=== PATIENT | female | born 1990 | race Two or more races ===

== ENCOUNTER 2016-06-06 18:20 | Observation (INO) | payer BC ==
[~2016-06-06] VITALS: Ht 157.5 cm; Wt 64.9 kg
--- NOTE | ~2016-06-06 | HP ---
PATIENT'S NAME: [facility] AGE: 26 Y [address] ROOM: [address] [place], [place] [address] [place] [facility] [place] DATE: 06/06/2016 History & Physical DISCHARGE DATE: FAMILY PHYSICIAN: Airam Carlos MD ATTENDING PHYSICIAN: Fifi Hernández DATE OF SERVICE: CHIEF COMPLAINT: Cough. HISTORY OF PRESENT ILLNESS: The patient is a 26-year-old female with a past medical history significant for asthma. Her primary physician is Dr. Airam Carlos. She reports cough, fever, chest, congestion, poor sleep, decreased appetite, sore throat, and headache that started yesterday. Cough has been dry. Temp has been up to 102.0. She has been using Tylenol and ibuprofen without much relief. She has had a headache in the frontal region. No known sick contacts. She reports that hurts in her anterior chest to take a deep breath. She feels very short of breath. She used a Ventolin inhaler at home and albuterol nebulizer at the clinic and denies any relief. She has never had to be hospitalized in the past for asthma exacerbation. She does not take an oral contraceptive, but does have a Mirena IUD. She is a nonsmoker. She lives alone at home with her young son. PAST MEDICAL HISTORY: None. MEDICATIONS: 1. Mirena IUD. 2. Ventolin inhaler p.r.n. ALLERGIES: NO KNOWN DRUG ALLERGIES. 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 Nonsmoker. Denies any alcohol use. PAST SURGICAL HISTORY: None. FAMILY HISTORY: Type 2 diabetes in a maternal grandmother. PATIENT'S NAME: [facility] AGE: 26 Y [address] ROOM: [id number] [place], [place] [address] LOCATION: [facility] [place] DATE: 06/06/2016 History & Physical DISCHARGE DATE: FAMILY PHYSICIAN: Airam Carlos MD ATTENDING PHYSICIAN: Fifi Hernández REVIEW OF SYSTEMS: CONSTITUTIONAL: She admits to fatigue, fevers, chills, and body aches. HEENT: Admits to headaches, nasal congestion, nasal discharge, and sore throat. Eyes: Denies any itchy watery eyes or drainage from the eyes. HEART: Denies any chest pain or irregular heartbeat. She does report anterior chest pain with taking a deep breath. RESPIRATORY: She admits to shortness of breath, cough, anterior chest pain with taking a deep breath. She denies wheezing or hemoptysis. GASTROINTESTINAL: Admits to nausea. Denies vomiting or diarrhea. SKIN: Denies rash. PHYSICAL EXAMINATION: VITAL SIGNS: Blood pressure 110/60, heart rate 118, temperature 101, weight 149 pounds, O2 saturation 93% on room air. GENERAL: She is awake, alert, and oriented. She appears to be uncomfortable. She has a very cough in the exam room. She has difficulty controlling. HEENT: Head: Atraumatic and normocephalic. Eyes: Conjunctivae clear. Ears: Both TMs visualized, normal in appearance. Nares patent, nasal mucosa with inflammation noted, sinuses are nontender to palpation. Mouth: Mucous membranes moist. No tonsillar enlargement or exudate. NECK: Supple. No lymphadenopathy or thyromegaly. HEART: Regular rhythm, tachycardic rate. No murmur heard. LUNGS: She has end-expiratory wheezing throughout. She has scattered rhonchi heard in the right middle lobe. GI: Abdomen is soft, nontender, nondistended. No masses palpated. No guarding or rebound tenderness. EXTREMITIES: No peripheral edema noted. SKIN: No rashes noted. LABORATORY DATA: CRP elevated at 1.21. WBC elevated at 14.1. Rapid strep negative. Influenza A and B negative. She was given albuterol nebulizer treatment in the clinic without much relief in her symptoms. I am concerned that she lives at home by herself and she looks to have a pneumonia on top of asthma. I did review her chest x-ray, and I did not see any acute infiltrate, but I am having this over-read by Radiology. We will admit for IV Levaquin and start p.o. steroids. We will also have oxygen as needed to keep O2 saturation above 90%. We will do albuterol nebulizer treatments every 4 hours and q.2 hours p.r.n. PATIENT'S NAME: JEANNE PABLO [facility] AGE: 26 Y [address] ROOM: [place] [id number] LOC[place]: [facility] [place] DATE: 06/06/2016 History & Physical DISCHARGE DATE: FAMILY PHYSICIAN: Airam Carlos MD ATTENDING PHYSICIAN: Fifi Hernández MD KB/modl /[id number] D: [id number] T: [id number] HISTORY & PHYSICAL
[2016-06-06] MEDS ORDERED: PROVENTIL OR V6.7 GM INH (18:54)
[2016-06-06] MEDS ORDERED: ZYRTEC10 MG PO (18:56)
[2016-06-06] MEDS ORDERED: MIRENA1 EACH VAG (18:56)
[2016-06-06] MEDS ORDERED: SINGULAIR10 MG PO (18:56)
--- NOTE | 2016-06-06 19:31 | NUR ---
Patient admitted for pneumonia and asthma exacerbation. Started having a cough yesterday that worsened over the night. States is productive at times with thick yellow sputum. High fever at home was 102 and in the clinic was 101.7. Also complains of generalized weakness, headache and decreased appetite. No allergies besides seasonal. Moderate risk VTE for control use. No other history besides asthma. Educated to room and call light use. Brother at bedside
--- NOTE | 2016-06-07 02:20 | NUR ---
SIGNIFICANT EVENT: Patient alert & oriented. Tachycardia - 111 to 118. RR 20 to 24. Temp 99.1 to 99.6. BP: 110 to 121 over 82 to 85. 92 to 93 on RA. Phenergan with codeine given x1, last at 0022. Breathing tx's are q2h PRN per RT. IV to L) hand is SL - intermittent antibiotics. Regular diet. SBA. Daily weight. Spouse at bedside. Pleasant and cooperative with cares.
[2016-06-07 05:09] LABS: BASOPHIL % 0.1 %; EOSINOPHIL % 0.2 %; HEMOGLOBIN 13.5 g/dL (11.0-15.0); IMMATURE GRANULOCYTE # 0.1 K/uL (0.0-0.3); IMMATURE GRANULOCYTE % 0.6 %; LYMPHOCYTE # 0.8 K/uL (0.8-4.0); LYMPHOCYTE % 9.7 %; MCH 30.6 pg (27.0-34.0); MCHC 33.8 gm/dL (32.0-36.5); MCV 90.7 fl (83.0-98.0); MONOCYTE # 0.1 K/uL (0.0-1.0); MONOCYTE % 1.2 %; MPV 9.1 fl (9.4-12.4); NEUTROPHIL # (ANC) 7.4 K/uL (1.8-7.8); NEUTROPHIL % 88.2 %; NRBC % 0 /100WBC (0-0.00); PLATELET COUNT 335 K/uL (150-450); RDW-CV 12.9 % (11.9-14.6); WBC 8.4 K/uL (4.0-11.0)
[2016-06-07 05:17] LABS: RBC 4.41 M/uL (3.50-5.00)
[2016-06-07 05:24] LABS: ANION GAP 14.5 (10.0-19.0); BLOOD UREA NITROGEN 6 mg/dL (6-24); CALCIUM 8.7 mg/dL (8.5-10.5); CHLORIDE 107 mMol/L (96-110); CO2 20 mMol/L (22-32); CREATININE 0.8 mg/dL (0.5-1.1); ESTIMATED GFR (MDRD EQUATION) > 60; POTASSIUM 3.5 mMol/L (3.7-5.1); SODIUM 138 mMol/L (135-145)
--- NOTE | 2016-06-07 12:06 | NUR ---
Met with patient this morning at bedside. Introduced myself and explained the role of the CM. Patient lives alone in [place]. She has family that also lives in [place] and friends. She states most of her friends work nights and sleep during the day, but she feels that she has family available to help her if she were to need something. She states her plan is to discharge to her home once medically cleared and she does not anticipate having any discharge needs. Will continue to follow and offer supports.
[2016-06-07] MEDS ORDERED: DELTASONE20 MG PO ×2 (14:04→14:05)
[2016-06-07] MEDS ORDERED: PREDNISONE10 MG PO (14:07)
[2016-06-07] MEDS ORDERED: LEVAQUIN500 MG PO (14:12)
--- NOTE | 2016-06-07 14:26 | NUR ---
D: ORDERS RECEIVED FOR THE PATIENT TO BE DISCHARGED TO HOME WITH HER TODAY. I: DISMISSAL INSTRUCTIONS WERE PREPARED AND REVIEWED WITH THE PATIENT AND HER VIRTUALLY. THE FOLLOWING INFORMATION WAS DISCUSSED INCLUDING [employer] TEACHING SHEETS PROVIDED: WHEN YOU HAVE PNEUMONIA, TREATING PNEUMONIA, PREVENTING PNEUMONIA, UNDERSTANDING ASTHMA, ASTHMA MEDICINE, UNDERSTANDING ASTHMA TRIGGERS, PREDNISONE, AND LEVAQUIN. REVIEWED FOLLOW UP APPOINTMENT WITH DR. GERRI FITZPATRICK ON 06/22/16 AT 3:00 PM AND NEW PRESCRIPTION TAPERING DOSES OF PREDNISONE AND THAT THE PATIENT CAN TAKE THEM TO THE PHARMACY OF HER CHOICE TO FILL. R: THE PATIENT VERBALIZED UNDERSTANDING OF THE DISMISSAL EDUCATION AT THE TIME OF TEACHING WITH NO FURTHER QUESTIONS. P: THE ABOVE INFORMATION WAS SHARED WITH THE PRIMARY NURSE AND THE CHARGE NURSE THE PATIENT DISMISSAL EDUCATION WAS COMPLETED. THE PATIENT IS READY FOR DISCHARGE TO THE FRONT DOOR VIA WHEEL CHAIR BY NURSING STAFF.
--- NOTE | 2016-06-07 15:15 | NUR ---
Dismissed home this afternoon. A/Ox3, cooperative with cares. Independent in room. Has frequent, harsh cough that she states just started to become productive this am with yellow phlegm. LS course throughout posteriorly, anteriorly clear and dimished, VSS, afebrile. C/O headache but states that it is better (rates about a 4 this am) refuses pain meds for this. All belongings sent with patient at discharged, escorted home by .
== END 2016-06-07 14:55 | disposition disaster alternative care site (69) ==
LOC: GMSU 18:24
PROVIDERS: ADMIT Family Medicine
DX: J45.901 Unspecified asthma with (acute) exacerbation (principal); J18.9 Pneumonia, unspecified organism; R09.02 Hypoxemia; R50.9 Fever, unspecified
CPT/HCPCS: G0378; G0379; J1956; J7050; J7512